=== PATIENT | female | born 1950 | race American Indian/Alaskan Native ===

== ENCOUNTER 2018-06-07 10:21 | Outpatient (CLI) | payer MEDICARE ==
--- NOTE | 2018-06-07 12:29 | Ultrasound Report ---
ULTRASOUND RENAL BILATERAL HISTORY: Renal cyst. TECHNIQUE: transabdominal ultrasound with color Doppler interrogation. COMPARISON: CT abdomen pelvis with contrast dated 09/28/13. FINDINGS: The right kidney measures 9.7 x 3.6 x 4.6cm. Right renal cortex: 1.0cm. The left kidney measures 19.1 x 5.5 x 7.1cm. Left renal cortex: 1.6cm. The kidneys are normal size, contour and position. There is increased renal cortical echotexture bilaterally consistent with nonspecific renal parenchymal disease. Corticomedullary differentiation is preserved. A large unilocular simple appearing cyst is identified at the superior pole of the left kidney measuring 16.2 x 9.7 x 14.1 cm. No evidence for mass, nephrolithiasis, hydronephrosis or perinephric fluid. The views of the bladder and the region of the ureters appear normal. IMPRESSION: Slightly echogenic kidneys consistent with nonspecific renal parenchymal disease. Large unilocular cyst at the superior pole of the left kidney which appears unchanged from the previous CT report. Images were not available.
== END 2018-06-07 10:22 | disposition home or self-care (01) ==
LOC: US 10:21
PROVIDERS: ATTEND Urology
DX: Q61.00 Congenital renal cyst, unspecified (principal); E78.00 Pure hypercholesterolemia, unspecified; K21.9 Gastro-esophageal reflux disease without esophagitis; M19.90 Unspecified osteoarthritis, unspecified site; Z87.891 Personal history of nicotine dependence; Z90.12 Acquired absence of left breast and nipple
CPT/HCPCS: 76770

== ENCOUNTER 2018-10-17 06:42 | Day surgery (SDC) | payer MEDICARE ==
[2018-10-17 07:27] LABS: Basophils % (Auto) 0.4 % (0.0-1.8); Eosinophils # (Auto) 0.1 K/mm3 (0.0-0.4); Eosinophils % (Auto) 1.4 % (0.0-4.3); Hematocrit 37.4 % (30.3-42.9); Hemoglobin 12.7 gm/dl (10.1-14.3); Lymphocytes # (Auto) 2.6 K/mm3 (1.2-5.4); Lymphocytes % (Auto) 38.5 % (13.4-35.0); Mean Corpuscular HGB Conc 34 % (30-34); Mean Corpuscular Volume 92 fl (79-97); Monocytes # (Auto) 0.4 K/mm3 (0.0-0.8); Monocytes % (Auto) 6.3 % (0.0-7.3); Platelet Count 294 K/mm3 (140-440); Red Blood Count 4.05 M/mm3 (3.65-5.03); Red Cell Distribution Width 13.8 % (13.2-15.2)
[2018-10-17 07:38] LABS: INR 0.86 (0.87-1.13)
[2018-10-17 07:39] LABS: Partial Thromboplastin Time 28.9 Sec. (24.2-36.6)
[2018-10-17 07:42] LABS: BUN/Creatinine Ratio 18; Blood Urea Nitrogen 14 mg/dL (7-17); Calcium 9.3 mg/dL (8.4-10.2); Hemolysis Index 10
[2018-10-17] MEDS ORDERED: SUBLIMAZE IV NR (07:51)
[2018-10-17] MEDS ORDERED: VERSED IV ONE (08:00)
--- NOTE | 2018-10-17 08:42 | Short Stay Summary ---
Short Stay Documentation Date of service: 10/17/18 - History Principal diagnosis: Left renal cyst - symptomatic H&P: obtained from office - Allergies and Medications Current Medications: Allergies No Known Allergies Allergy (Unverified 09/27/13 15:09) Home Medications Medication Instructions Recorded Confirmed Last Taken Type clonazePAM [KlonoPIN] 0.5 mg PO BID PRN 09/27/13 07/06/16 09/26/13 History Acetaminophen [Tylenol Arthritis] 650 mg PO PRN PRN 07/06/16 07/14/16 07/13/16 06:00 History AtorvaSTATin [Lipitor] 20 mg PO DAILY 07/06/16 07/06/16 Unknown History Cetirizine HCl [Allergy Relief] 10 mg PO DAILY 07/06/16 07/14/16 07/13/16 06:00 History Ergocalciferol (Vitamin D2) 2,000 unit PO DAILY 07/06/16 07/14/16 07/13/16 06:00 History [Vitamin D2] [place]-3 Fatty Acids/Fish Oil [Fish 1 each PO 1XW 07/06/16 07/06/16 Unknown History Oil] Active Medications Fentanyl (Sublimaze) 100 mcg IV ONCE NR Stop: 10/17/18 12:00 - Brief post op/procedure progress note Date of procedure: 10/17/18 Pre-op diagnosis: Left renal cyst - symptomatic Post-op diagnosis: same Procedure: left renal cyst drainage Anesthesia: local Surgeon: GIANNA RICHARDSON Estimated blood loss: none Specimen disposition: to lab Condition: stable - Disposition Condition at discharge: Good Disposition: [id number] TO HOME OR SELFCARE Short Stay Discharge Plan Activity: advance as tolerated Weight Bearing Status: Weight Bear as Tolerated Diet: regular Wound: keep clean and dry, per your surgeon's advice Follow up with: LORIE LEWIS MD [Primary Care Provider] - 7 Days
--- NOTE | 2018-10-17 09:31 | Cat Scan Report ---
Exam: CT-guided aspiration of left renal cyst Clinical indication: Patient with 17 cm left renal cyst and left flank pain Date: 10/17/2018 Procedure: Following an explanation of the risks, benefits and alternative; written informed consent was obtained. The patient was brought to the CT suite and placed in prone position on the examination table. Initial rubber insulator images of the lower back were obtained an appropriate access site was chosen. The patient's left lower back was prepped and draped in the usual sterile fashion. 1% lidocaine was used for anesthesia. Using intermittent CT guidance, a left renal cyst was cannulated with a 5 [place] pigtail [employer] catheter. The trocar was removed. There was prompt return of clear serous fluid. A total of 900 mL of clear serous fluid was aspirated. Samples were sent for both cytology and culture and sensitivity. Following aspiration, the catheter was removed and hemostasis achieved on the skin surface using manual compression. A sterile dressing was applied. The patient tolerated the procedure well. There were no immediate post procedure complications. Conscious sedation was performed under the guidance of radiologic nursing. Continuous cardiopulmonary monitoring was utilized. Impression: CT-guided aspiration of left renal cyst with 900 mL's of clear serous fluid aspirated. Samples were sent for both cytology and culture and
[2018-10-17 09:38] VITALS: BP 115/63
== END 2018-10-17 10:30 | disposition home or self-care (01) ==
LOC: CATHLABREC 06:42 → EDSTATUS 08:30 → CATHLABREC 10:30
PROVIDERS: ATTEND Radiology Diagnostic Radiology
DX: N28.1 Cyst of kidney, acquired (principal); E78.00 Pure hypercholesterolemia, unspecified; K21.9 Gastro-esophageal reflux disease without esophagitis; M17.0 Bilateral primary osteoarthritis of knee; F41.9 Anxiety disorder, unspecified; Z98.890 Other specified postprocedural states; Z79.899 Other long term (current) drug therapy; Z87.891 Personal history of nicotine dependence; Z98.49 Cataract extraction status, unspecified eye
CPT/HCPCS: 36415; 50200; 77012; 80048; 85025; 85610; 85730; 87116; 88112; J2250; J3010

== ENCOUNTER 2018-12-27 09:17 | Outpatient (CLI) | payer MEDICARE ==
[2018-12-27 09:49] LABS: BUN/Creatinine Ratio 20; Blood Urea Nitrogen 16 mg/dL (7-17); Calcium 8.9 mg/dL (8.4-10.2); Hemolysis Index 2
--- NOTE | 2018-12-27 13:01 | Cat Scan Report ---
PROCEDURE: CT CHEST W CON TECHNIQUE: CT examination of the chest with IV contrast HISTORY: Pleural effusion in other conditions classified elsewhere COMPARISONS: AP CT 09/28/2013 and left renal biopsy/aspiration CT 10/17/2018 FINDINGS: Normal cardiac size without pericardial effusion. Intact normal caliber thoracic aorta. No hilar mass or mediastinal adenopathy. Normal-appearing esophagus. No filling defect in the visualized pulmonary arteries. Smoothly marginated hypodense right hepatic lobe lesions are nonspecific and statistically most likel y reflect cysts and/or hemangiomas. A nonspecific, smoothly marginated, now slightly lobulated, low density, simple appearing left renal lesion is statistically most likely a cyst. It appears partially decompressed from comparison biopsy and/or drainage CT. Degenerative change in the regional skeleton. No acute fracture. No pneumothorax or pleural effusion. No pulmonary consolidation. No significant lung mass or pulmonary nodule. IMPRESSION: No CT evidence of pleural effusion or other acute cardiopulmonary disease. Findings suggest partial interval drainage of large left renal upper pole cyst This document is electronically signed by Noel Sharpe MD., December 27 2018 12:59:39 PM ET
--- NOTE | 2018-12-27 14:39 | Ultrasound Report ---
Sonogram right upper quadrant: History: Abnormal liver. Findings: Normal aorta measures 1.7 cm. Inhomogeneous echo pattern liver probably fatty liver. Cyst liver measures 1.8 x 2.4 x 2.3 cm. No intrahepatic or extrahepatic duct dilatation. Common bile duct diameter is 4.3 mm. Gallbladder wall thickness 1.9 mm. No calculi in the gallbladder. Right kidney 10.2 x 2.6 x 4.6 cm. Cortical thickness 0.9 cm. Smaller renal calculus measuring 0.2 x 0.8 cm. Prominent pancreatic duct measures 2.3 mm. Impression: Fatty liver. Cyst liver. Nonobstructing calculus right kidney. Prominent pancreatic duct.
== END 2018-12-27 09:18 | disposition home or self-care (01) ==
LOC: CT 09:17
PROVIDERS: ATTEND Internal Medicine
DX: K76.0 Fatty (change of) liver, not elsewhere classified (principal); K76.89 Other specified diseases of liver; K86.89 Other specified diseases of pancreas; E78.00 Pure hypercholesterolemia, unspecified; K21.9 Gastro-esophageal reflux disease without esophagitis; M19.90 Unspecified osteoarthritis, unspecified site
CPT/HCPCS: 36415; 71260; 76705; 80048; Q9967

== ENCOUNTER 2019-09-09 13:00 | Outpatient (CLI) | payer MEDICARE ==
--- NOTE | 2019-09-09 15:51 | Ultrasound Report ---
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 COMPARISON: Abdominal ultrasound from 12/27/2018 FINDINGS: RIGHT KIDNEY: Length = 9.6 cm. [normal > 9 cm] - Parenchymal Thickness = 1.1 cm. [normal > 1.5 cm] - Echogenicity: Normal. - Hydronephrosis: None. - Cyst or mass: No significant abnormality. - Stones: None seen. LEFT KIDNEY: Length = 14.3 cm. [normal > 9 cm] - Parenchymal Thickness = 1.4 cm. [normal > 1.5 cm] - Echogenicity: Normal. - Hydronephrosis: None. - Cyst or mass: Simple cyst measuring 11 cm arising from the upper pole. - Stones: None seen. URINARY BLADDER: Collapsed. FREE FLUID: None. ADDITIONAL FINDINGS: None. IMPRESSION: 1. Simple left renal cyst. Otherwise unremarkable exam. Signer Name: Marlon Lau MD Signed: 09/09/2019 3:47 PM Workstation Name: [id number]
== END 2019-09-09 13:01 | disposition home or self-care (01) ==
LOC: US 13:00
PROVIDERS: ATTEND Urology
DX: N28.1 Cyst of kidney, acquired (principal)
CPT/HCPCS: 76770

== ENCOUNTER 2021-10-28 06:12 | Outpatient (CLI) | payer MEDICARE ==
[2021-10-28 07:45] LABS: Basophils % (Auto) 0.5 % (0.0-1.8); Eosinophils % (Auto) 0.5 % (0.0-4.3); Hematocrit 37.7 % (30.3-42.9); Hemoglobin 12.3 gm/dl (10.1-14.3); Lymphocytes # (Auto) 2.1 K/mm3 (1.2-5.4); Mean Corpuscular HGB Conc 33 % (30-34); Mean Corpuscular Volume 94 fl (79-97); Monocytes # (Auto) 0.4 K/mm3 (0.0-0.8); Monocytes % (Auto) 7.3 % (0.0-7.3); Platelet Count 292 K/mm3 (140-440); Red Blood Count 4.02 M/mm3 (3.65-5.03); Red Cell Distribution Width 15.1 % (13.2-15.2)
[2021-10-28 07:52] LABS: INR 0.81 (0.87-1.13); Partial Thromboplastin Time 29.7 Sec. (24.2-36.6)
[2021-10-28 07:59] LABS: Blood Urea Nitrogen 11 mg/dL (7-17); Hemolysis Index 811
[2021-10-28] MEDS ORDERED: SODIUM CHLORIDE 0.9% 500 ML 500 ML IV SCH (08:00)
[2021-10-28 08:07] LABS: BUN/Creatinine Ratio TNR
[2021-10-28 08:39] LABS: Blood Urea Nitrogen 12 mg/dL (7-17); Calcium 9.2 mg/dL (8.4-10.2); Hemolysis Index 3
[2021-10-28] MEDS ORDERED: fentaNYL 100 MCG/2 ML INJ IV NR ×2 (08:42→11:31)
[2021-10-28] MEDS ORDERED: MIDAZOLAM 5 MG/5 ML INJ MDV IV NR (08:42)
[2021-10-28 08:43] LABS: BUN/Creatinine Ratio 17
--- NOTE | 2021-10-28 08:44 | Short Stay Summary ---
Short Stay Documentation Date of service: 10/28/21 - History Principal diagnosis: Left renal cyst Past Medical History: other (Left renal cyst, venous insufficiency) Past Surgical History: No surgical history (Prior left renal cyst aspiration) Social history: no significant social history - Allergies and Medications Current Medications: Allergies No Known Allergies Allergy (Verified 09/13/21 08:09) Home Medications Medication Instructions Recorded Confirmed Last Taken Type clonazePAM [KlonoPIN] 0.5 mg PO BID PRN 09/27/13 10/28/21 10/27/21 History Acetaminophen [Tylenol Arthritis] 650 mg PO PRN PRN 07/06/16 10/28/21 10/26/21 History AtorvaSTATin [Lipitor] 20 mg PO DAILY 07/06/16 10/28/21 1 Week Ago History ~10/21/21 atenoloL [Tenormin] 25 mg PO DAILY 10/28/21 10/28/21 10/27/21 History methocarbamoL [Methocarbamol] 500 mg PO Q6H PRN 10/28/21 10/28/21 10/27/21 History Active Medications Sodium Chloride (Nacl 0.9% 500 Ml) 500 mls @ 50 mls/hr IV DIRECT SRINIVASAN Stop: 10/28/21 20:00 - Physical exam General appearance: no acute distress Integumentary: no rash HEENT: Atraumatic Lungs: Normal air movement Breasts: deferred Heart: Regular rate Female Genitourinary: deferred Rectal Exam: deferred Neurological: Normal gait, Normal speech - Brief post op/procedure progress note Date of procedure: 10/28/21 Pre-op diagnosis: Large left symptomatic renal cyst Post-op diagnosis: same Procedure: CT-guided aspiration and sclerosing of left renal cyst Anesthesia: local Surgeon: GIANNA RICHARDSON Estimated blood loss: minimal Pathology: none Condition: stable - Disposition Condition at discharge: Good Disposition: 01 HOME / SELF CARE / HOMELESS Short Stay Discharge Plan Activity: advance as tolerated Weight Bearing Status: Weight Bear as Tolerated Diet: regular Wound: keep clean and dry, per your surgeon's advice Follow up with: PRIMARY CARE, [Primary Care Provider] - 7 Days
[2021-10-28] MEDS ORDERED: SODIUM CHLORIDE 0.9% IV ONE (09:00)
[2021-10-28] MEDS ORDERED: SODIUM CHLORIDE 0.9% 50 ML IVPB IV ONE (09:00)
[2021-10-28] MEDS ORDERED: SODIUM CHLORIDE 0.9% 100 ML IVPB IV SCH (09:00)
[2021-10-28] MEDS ORDERED: DOXYCYCLINE HYCLATE IV ONE (09:00)
[2021-10-28] MEDS ORDERED: DOXYCYCLINE HYCLATE 100 MG INJ IV ONE (09:00)
[2021-10-28] MEDS ORDERED: LIDOCAINE (1%) 10 MG/1 ML VIAL 20 ML MDV ONE (09:39)
[2021-10-28 10:01] VITALS: BP 124/60
[2021-10-28] MEDS ORDERED: ACETAMINOPHEN 500 MG TAB ONE (10:12)
[2021-10-28] MEDS ORDERED: MORPHINE 2 MG/1 ML INJ ONE (10:53)
[2021-10-28] MEDS ORDERED: ACETAMINOPHEN 500 MG TAB PO ONE (11:00)
[2021-10-28] MEDS ORDERED: MORPHINE 2 MG/1 ML INJ IV ONE (11:00)
--- NOTE | 2021-10-28 11:04 | Operative Report ---
Operative Report Operative Report: Exam: CT-guided drainage of left renal cyst, CT-guided injection of sclerosing agent with removal in recovery area Clinical indication: Patient with a history of recurrent large left renal cyst to cause a symptomatic left flank and back pain secondary to its large size Date: 10/28/2021 Procedure: Following an explanation of the risk, benefits and alternatives; written informed consent was obtained. The patient was brought to the CT suite and placed in a lateral position on the examination table. Initial onion topper images of the abdomen were performed and appropriate access site was chosen in the patient's left lower back. The patient's back and flank were prepped and draped in the usual sterile fashion. 1% lidocaine was used for anesthesia. The patient's diaphragm extends below the level of the initially anticipated access site and a newer access site below the level of the diaphragm was chosen. Additional lidocaine was used for anesthesia. Using intermittent CT guidance, a 15 cm 18-gauge needle was advanced superiorly into the central aspect of the cyst. There was prompt drainage of dark serous fluid. A 0.035 guidewire was then advanced through the needle and the needle removed. Following serial dilation over the guidewire, a 8 [place] drainage catheter was advanced over the guidewire and paste placed in the most dependent portion of the cyst. CT images were obtained to document both appropriate placement of the catheter as well as the stability of the diaphragm with lack of any free air within the pleural surfaces. Aspiration was then performed with over 320 mL of dark serous fluid aspirated. Following aspiration, a mixture of 500 mg of doxycycline, 50 mg of sterile saline and 10 mL of lidocaine was injected into the cyst and the patient taken to the recovery room following securing the catheter the patient's back and capping the catheter. Following a dwell time of 1 hour in the recovery tube, the fluid was then aspirated and the tube removed intact. A sterile dressing was applied. The patient tolerated the procedure well. There were no immediate postprocedure complications. Conscious sedation was performed under the guidance of radiologic nursing. Continuous cardiopulmonary monitoring was utilized. Impression: 1) CT-guided drainage of left renal cyst with 320 mL of dark serous fluid aspirated. 2) CT-guided injection of sclerosing agent as described with dwell time of 1 hour and removal of both the sclerosant and drainage catheter in the recovery area.
[2021-10-28] MEDS ORDERED: oxyCODONE /ACETAMINOPHEN 5-325MG TAB PO ONE (11:32)
--- NOTE | 2021-10-29 11:12 | Cat Scan Report ---
PLEASE SEE OPERATIVE REPORT ON 10/28/21 @1100 MTDD
== END 2021-10-28 14:00 | disposition home or self-care (01) ==
LOC: CT 06:12 → CATHLABREC 06:12
PROVIDERS: ATTEND Radiology Diagnostic Radiology
DX: N28.1 Cyst of kidney, acquired (principal); E78.00 Pure hypercholesterolemia, unspecified; I10 Essential (primary) hypertension; K21.9 Gastro-esophageal reflux disease without esophagitis; M19.90 Unspecified osteoarthritis, unspecified site; F32.9 Major depressive disorder, single episode, unspecified; F41.9 Anxiety disorder, unspecified; Z20.822 Contact with and (suspected) exposure to COVID-19; Z79.899 Other long term (current) drug therapy; Z87.891 Personal history of nicotine dependence; Z87.01 Personal history of pneumonia (recurrent); Z98.49 Cataract extraction status, unspecified eye; Z98.51 Tubal ligation status; Z90.12 Acquired absence of left breast and nipple; Z98.890 Other specified postprocedural states
CPT/HCPCS: 10160; 36415; 77012; 80048; 85025; 85610; 85730; C1769; J2250; J2270; J3010; J3490; J7040; J7050

== ENCOUNTER 2021-11-05 06:58 | Day surgery (SDC) | payer MEDICARE ==
[2021-11-05] MEDS ORDERED: SODIUM CHLORIDE 0.9% 1000 ML 1,000 ML ONE (07:19)
[2021-11-05] MEDS ORDERED: WATER FOR IRRIG STERILE 1,000 ML BOTTLE ONE (07:28)
[2021-11-05] MEDS ORDERED: WATER FOR IRRIG STERILE 250 ML BOTTLE IR ONE (07:28)
--- NOTE | 2021-11-05 07:46 | Anesthesia Consultation ---
Anesthesia Consult and Med Hx Date of service: 11/05/21 - Airway Anesthetic Teeth Evaluation: Crowns ROM Head & Neck: Adequate Mental/Hyoid Distance: Adequate Mallampati Class: Class I Intubation Access Assessment: Good - Pulmonary Exam CTA: Yes - Pre-Operative Health Status ASA Pre-Surgery Classification: ASA2 Proposed Anesthetic Plan: MAC - Pulmonary Hx Smoking: Yes (pformer smoker) Hx Asthma: No COPD: No Hx Pneumonia: Yes Hx Sleep Apnea: No - Cardiovascular System Hx Hypertension: Yes Hx Cardia Arrhythmia: Yes (RBBB) - Central Nervous System Hx Back Pain: Yes Hx Psychiatric Problems: Yes (Anxiety, panic d/o, claustrophobia) - Gastrointestinal Hx Gastroesophageal Reflux Disease: Yes - Endocrine Hx Renal Disease: Yes (cyst in left kidney) Hx End Stage Renal Disease: No Hx Liver Disease: Yes (Cyst) Hx Thyroid Disease: No - Hematic Hx Anemia: No Hx Sickle Cell Disease: No - Other Systems Hx Alcohol Use: No Hx Cancer: No - Additional Comments Anesthesia Medical History Comments: Patient denied previous anesthesia complications
--- NOTE | 2021-11-05 07:47 | Anesthesia Day of Surgery ---
Anesthesia Day of Surgery - Day of Surgery Patient Examined: Yes Patient H&P Reviewed: Yes Patient is NPO: Yes Beta Blockers: No Cardiac Clearance: No Pulmonary Clearance: No
[2021-11-05] MEDS ORDERED: propofoL 200 MG/20 ML VIAL IV ONE (07:48)
[2021-11-05] MEDS ORDERED: LIDOCAINE MPF (2%) 20 MG/1 ML VIAL 5 ML ONE (07:51)
--- NOTE | 2021-11-05 08:11 | Operative Report ---
Operative Report Operative Report: DOS: 11/05/2021 SURGEON: Saul Wilkins MD COLONOSCOPY WITH SNARE POLYPECTOMY AND BIOPSY POLYPECTOMY REPORT PREOPERATIVE AND POSTOPERATIVE DIAGNOSIS: Screening colonoscopy DESCRIPTION OF PROCEDURE: The colonoscope was passed to the terminal ileum as identified by the ileal tissue. Scope was carefully withdrawn. Retroflexion was performed in the rectum. At the end of procedure, the scope was cleaned using normal technique. Vital signs monitored continuously throughout. SEDATION: Provided by Anesthesiology Services. Quality of the prep was adequate. COMPLICATIONS: None. ESTIMATED BLOOD LOSS: Minimal FINDINGS: * Normal terminal ileum * 5 mm sessile polyp in the cecum removed by cold snare polypectomy * 3 mm sessile polyp in the descending colon removed by cold biopsy polypectomy * Few scattered small diverticula in the sigmoid colon * Small nonbleeding internal hemorrhoids * Remainder of exam unremarkable RECOMMENDATIONS: Repeat colonoscopy in 5 years High-fiber diet
[2021-11-05 09:25] VITALS: BP 132/73
--- NOTE | 2021-11-05 13:20 | Post Anesthesia Evaluation ---
- Post Anesthesia Evaluation Patient Participated: Yes Airway Patent: Yes Stable Respiratory Function: Yes Nausea/Vomiting: No Temp > 96.8F: Yes Pain Manageable: Yes Adequeate Hydration: Yes Anesthesia Complications: No Block Receding Appropriately: Not Applicable Patient on Ventilator: No
== END 2021-11-05 06:59 | disposition home or self-care (01) ==
LOC: GIO 06:58
PROVIDERS: ATTEND Student in an Organized Health Care Education/Training Program
DX: Z12.11 Encounter for screening for malignant neoplasm of colon (principal); K57.30 Diverticulosis of large intestine without perforation or abscess without bleeding; K64.8 Other hemorrhoids; D12.0 Benign neoplasm of cecum; K63.89 Other specified diseases of intestine; E78.00 Pure hypercholesterolemia, unspecified; I10 Essential (primary) hypertension; K21.9 Gastro-esophageal reflux disease without esophagitis; M19.90 Unspecified osteoarthritis, unspecified site; F41.9 Anxiety disorder, unspecified; Z20.822 Contact with and (suspected) exposure to COVID-19; Z79.899 Other long term (current) drug therapy; Z87.891 Personal history of nicotine dependence; Z87.01 Personal history of pneumonia (recurrent); Z98.49 Cataract extraction status, unspecified eye; Z94.4 Liver transplant status; Z98.51 Tubal ligation status; Z98.890 Other specified postprocedural states
CPT/HCPCS: 45380; 45385; 88305; J2704; J3490; J7030; U0003; J7120; Q0162

== ENCOUNTER 2022-03-17 16:23 | Emergency (ER) | payer MEDICARE ==
[2022-03-17 16:30] VITALS: BP 150/82
== END 2022-03-17 18:00 | disposition left against medical advice (07) ==
LOC: ED 16:23
DX: R69 Illness, unspecified (principal); Z53.21 Procedure and treatment not carried out due to patient leaving prior to being seen by health care provider